=== PATIENT | female | born 1960 | race Caucasian/White ===

== ENCOUNTER 2020-04-18 09:50 | Emergency (ER) | payer MEDICAID ==
[~2020-04-18] VITALS: Ht 162.6 cm; Wt 100.0 kg
[2020-04-18] MEDS ORDERED: SIMVASTATIN5 MG PO ×2 (12:02→12:12)
[2020-04-18] MEDS ORDERED: LEVOTHYROXIN50 MCG PO ×2 (12:04→12:11)
[2020-04-18] MEDS ORDERED: GABAPENTIN100 MG PO ×2 (12:07→12:13)
[2020-04-18] MEDS ORDERED: LISINOPRIL5 MG PO (12:14)
[2020-04-18] MEDS ORDERED: TRAMADOL HYDROC50 M1 PO (12:17)
[2020-04-18] MEDS ORDERED: DECADRON4 MG PO (12:17)
[2020-04-18] MEDS ORDERED: CYCLOBENZAPR5 MG PO (12:17)
[2020-04-18 12:31] VITALS: BP 131/89
== END 2020-04-18 12:31 | disposition home or self-care (01) ==
LOC: ED 09:50
DX: M54.41 Lumbago with sciatica, right side (principal); E78.5 Hyperlipidemia, unspecified

== ENCOUNTER 2020-04-20 18:36 | Emergency (ER) | payer MEDICAID ==
[~2020-04-20] VITALS: Ht 162.6 cm; Wt 91.0 kg
[~2020-04-20 18:36] MED LIST: CYCLOBENZAPR5 MG PO; DECADRON4 MG PO; GABAPENTIN100 MG PO; LEVOTHYROXIN50 MCG PO; LISINOPRIL5 MG PO; SIMVASTATIN5 MG PO; TRAMADOL HYDROC50 M1 PO
[2020-04-20 21:55] VITALS: BP 131/75
[2020-04-20] MEDS ORDERED: LORTAB5 PO (22:12)
== END 2020-04-20 22:25 | disposition home or self-care (01) ==
LOC: ED 18:36
DX: M54.31 Sciatica, right side (principal); S80.01XA Contusion of right knee, initial encounter; S93.401A Sprain of unspecified ligament of right ankle, initial encounter; E78.5 Hyperlipidemia, unspecified; Y92.238 Other place in hospital as the place of occurrence of the external cause; W18.30XA Fall on same level, unspecified, initial encounter